=== PATIENT | female | born 1930 | race Caucasian/White ===

== ENCOUNTER 2017-07-29 15:24 | Emergency (ER) | payer MEDICARE ==
[2017-07-29] MEDS ORDERED: AMPICILLIN SODIUM IVPB ONE (16:46)
[2017-07-29] MEDS ORDERED: SULBACTAM NA IVPB ONE (16:46)
[2017-07-29] MEDS ORDERED: SODIUM CHLORIDE 0.9% IVPB ONE (16:46)
--- NOTE | 2017-07-29 16:56 | Emergency Department Record ---
History of Present Illness - General Chief Complaint: Animal Bite Stated Complaint: CAT BITE ON LT ARM Time Seen by Provider: 07/29/17 16:35 Source: Patient Mode of Arrival: Ambulatory Limitations: No limitations - History of Present Illness Initial Comments: The patient was bit by a cat in her garage about 10 hours ago. She feeds the cat in her garage but it is an outdoor stray cat. Now the cat bite site appears infected to the patient because it has become warm, tender and swollen. Her TD is UTD. She denies any numbness, tingling or weakness. Complaint: Animal bite Onset/Timin -: Hour(s) Animal: Cat Description: Immunizations unknown Mechanism: Bite Pain Description: Sharp Severity scale (1-10): 7 Context: Unprovoked Associated Symptoms: Erythema - Related Data Patient Tetanus UTD (within 5 yrs): Yes Home Medications Medication Instructions Recorded Confirmed Last Taken Aspirin [Aspir-Low] 81 mg PO DAILY 07/29/17 07/29/17 07/29/17 Calcium Citrate 95 mg PO DAILY 07/29/17 07/29/17 07/29/17 Lutein 6 mg PO DAILY 07/29/17 07/29/17 07/29/17 Multivitamin [Multi-Vitamin Daily] 1 each PO DAILY 07/29/17 07/29/17 07/29/17 Donner-3 Fatty Acids/Fish Oil [Fish 1 each PO DAILY 07/29/17 07/29/17 07/29/17 Oil 1,000 mg Capsule] Simethicone [Gas-X] 125 mg PO ASDIR 07/29/17 07/29/17 07/29/17 Allergies Allergy/AdvReac Type Severity Reaction Status Date / Time brimonidine tartrate Allergy PT UNSURE Verified 04/24/16 10:55 [From Alphagan P] OF REACTION Travel Screening - Travel/Exposure Within Last 30 Days Have you traveled within the last 30 days?: No - Travel/Exposure Within Last Year Have you traveled outside the [place] in the last year?: No - Additonal Travel Details Have you been exposed to anyone with a communicable illness?: No - Travel Symptoms Symptom Screening: None Review of Systems Constitutional: Denies: Chills, Fever Eyes: Denies: Eye discharge ENT: Denies: Congestion Respiratory: Denies: Cough, Dyspnea Past Medical History - SOCIAL HISTORY Smoking Status: Never smoker Alcohol Use: None Drug Use: None - RESPIRATORY Hx Respiratory Disorders: No - CARDIOVASCULAR Hx Cardio Disorders: Yes Hx Hypertension: Yes - NEURO Hx Neuro Disorders: No - GI Hx GI Disorders: No - Hx Genitourinary Disorders: No - ENDOCRINE Hx Endocrine Disorders: Yes Hx Thyroid Disease: Yes - MUSCULOSKELETAL Hx Musculoskeletal Disorders: No - PSYCH Hx Psych Problems: No - HEMATOLOGY/ONCOLOGY Hx Hematology/Oncology Disorders: No Family Medical History Any Significant Family History?: No Physical Exam - General General Appearance: Alert, Oriented x3, Cooperative - Head Head exam: Atraumatic, Normocephalic, Normal inspection - Eye Eye exam: Normal appearance - Neck Neck exam: Normal inspection, Full ROM. negative: Tenderness - Respiratory Respiratory exam: Normal lung sounds bilaterally. negative: Respiratory distress - Cardiovascular Cardiovascular Exam: Regular rate, Normal rhythm, Normal heart sounds - Extremities Extremities exam: negative: Normal inspection (The L distal anterior forearm has significant erythema, warmth and tenderness.) Image of Full Body: 1 - Area of warmth, tenderness and erythema. Course Vital Signs 07/29/17 15:44 Temperature 97.3 F L Pulse Rate 104 H Respiratory 20 Rate Blood Pressure 154/94 Pulse Ox 96 - Reevaluation(s) Reevaluation #1: I did discuss the case at length with Dr. Foote. We will give the patient a dose of IV Abx now and an oral dose to start tonight. If the infected area is worse tomorrow morning the patient is to return to the ER for admission per Dr. Foote. The patient understands the plan and will comply. I also discussed the need to contact animal control to find and quarantine the cat. The patient will need to decide if she wants to initiate Rabies shots within a week if the cat cannot be located. 07/29/17 16:56 Reevaluation #2: The patient is doing very well at this time. Dr. Foote did come to the ER to see the patient and will contact her in the morning. If the infection worsens he will directly admit her to the hospital. 10/20/17 17:26 Medical Decision Making - Lab Data Result diagrams: 07/29/17 17:08 07/29/17 17:08 Disposition Disposition: Discharge Clinical Impression: Cellulitis Qualifiers: Site of cellulitis: unspecified site Qualified Code(s): L03.90 - Cellulitis, unspecified Disposition: Home, Self-Care Condition: (1) Good Instructions: Animal Bite (ED) Additional Instructions: Please take the Augmentin per Dr. Foote. Please elevate the arm as much as possible. Please return to the ER for any increased redness, pain, swelling, or fever. Forms: Patient Portal Access Time of Disposition: 17:46 Quality - Quality Measures Quality Measures: N/A - Blood Pressure Screening View Details: Yes Does Patient Have Any of the Following: No, Active Dx of HTN Blood Pressure Classification: Hypertensive Reading Systolic Measurement: 154 Diastolic Measurement: 94 Screening for High Blood Pressure: Patient Exclusion, Hx of HTN [[id number]]
[2017-07-29 17:26] LABS: HEMATOCRIT 45.8 % (35.0-47.0); HEMOGLOBIN 14.9 gm/dl (11.6-16.0); MEAN CELL VOLUME 93.5 fl (81-97); MEAN CORPUSCULAR HEMOGLOBIN 30.4 pg (27-33); MEAN CORPUSCULAR HGB CONC 32.5 g/dl (32-36); MEAN PLATELET VOLUME 10.2 fl (7.4-10.4); PLATELET COUNT 249 K/uL (130-400); RED CELL DISTRIBUTION WIDTH 13.3 % (11.5-14.5); WHITE BLOOD COUNT W/O DIFF 12.2 K/uL (4.2-12.2)
[2017-07-29 17:44] LABS: BLOOD UREA NITROGEN 20 mg/dL (8-23); C-REACTIVE PROTEIN 0.4 mg/L (<5.0); CREATININE 0.6 mg/dL (0.5-0.9); EST GLOMERULAR FILTRATION RATE > 60 mL/min; GLUCOSE,RANDOM 109 mg/dL (74-109)
== END 2017-07-29 17:54 | disposition home or self-care (01) ==
LOC: ER 15:24
DX: S50.872A Other superficial bite of left forearm, initial encounter (principal); L03.114 Cellulitis of left upper limb; W55.01XA Bitten by cat, initial encounter; Y93.K9 Activity, other involving animal care; Y92.008 Other place in unspecified non-institutional (private) residence as the place of occurrence of the external cause
CPT/HCPCS: 99284 ×2; 96374; 86140; 80048; 85027; J0295